=== PATIENT | male | born 1970 | race African-American/Black ===

== ENCOUNTER 2017-06-14 11:33 | Emergency (ER) | payer BC ==
[2017-06-14 12:03] VITALS: BP 163/118
--- NOTE | 2017-06-14 12:32 | UC ---
Respiratory Complaint HPI - HPI Summary HPI Summary: 3 DAYS OF COUGH, CONGESTION AND HOARSENESS. HAS SOME INTERMITTENT NAUSEA. ST INITIALLY HAS NOW RESOLVED. FEELS SOB AND WHEEZY. TEMP ABOUT 100 A COUPLE OF DAYS AGO. - History of Current Complaint Chief Complaint: UCGeneralIllness Stated Complaint: RESP ISSUE Time Seen by Provider: 06/14/17 12:13 Hx Obtained From: Patient, Family/Cage Operator - Onset/Duration: Gradual Onset, Lasting Days, Still Present Timing: Constant Severity Initially: Moderate Severity Currently: Moderate Pain Intensity: 0 Pain Scale Used: 0-10 Numeric Character: Cough: Nonproductive Aggravating Factors: Nothing Alleviating Factors: Nothing Associated Signs And Symptoms: Positive: Dyspnea, Fever, Wheezing, URI, Nasal Congestion, Hoarseness. Negative: Chills - Allergies/Home Medications Allergies/Adverse Reactions: Allergies Allergy/AdvReac Type Severity Reaction Status Date / Time ceftriaxone [From Rocephin] Allergy Severe Airway Verified 06/14/17 11:58 Obstruction Home Medications: Home Medications Acetaminophen [Tylenol Extra Strength] 2 tab PO BID 06/14/17 [History Confirmed 06/14/17] PMH/Surg Hx/FS Hx/Imm Hx Cardiovascular History: Hypertension - Surgical History Surgical History: Yes Surgery Procedure, Year, and Place: 2006 LAPAROSCOPIC CHOLECYSTECTOMY, [place]. 07/18/2013 BLASTING OF (27 stones)KIDNEY STONE RIGHT SIDE, [facility] [place] - Family History Known Family History: Positive: Hypertension - Social History Alcohol Use: Occasionally Substance Use Type: None Smoking Status (MU): Never Smoked Tobacco - Immunization History Most Recent Tetanus Shot: unknown Review of Systems Constitutional: Fever, Fatigue ENT: Sore Throat, Nasal Discharge Respiratory: Shortness Of Breath, Cough Cardiovascular: Negative Gastrointestinal: Vomiting, Nausea Musculoskeletal: Myalgia All Other Systems Reviewed And Are Negative: Yes Physical Exam Triage Information Reviewed: Yes Appearance: Well-Appearing, No Pain Distress, Well-Nourished Vital Signs: Initial Vital Signs Temp 99.3 F 06/14/17 11:58 Pulse 95 06/14/17 11:58 Resp 21 06/14/17 11:58 BP 163/118 06/14/17 11:58 Pulse Ox 98 06/14/17 11:58 Vital Signs Reviewed: Yes Eyes: Positive: Conjunctiva Clear ENT: Positive: Hearing grossly normal, Pharynx normal, TMs normal Neck: Positive: Supple, Nontender, No Lymphadenopathy Respiratory Exam: Normal Cardiovascular Exam: Normal Abdomen Description: Positive: Soft Musculoskeletal: Positive: No Edema Neurological: Positive: Alert Psychological: Positive: Normal Response To Family, Age Appropriate Behavior Skin: Negative: rashes UC Diagnostic Evaluation - Laboratory O2 Sat by Pulse Oximetry: 98 - Radiology Xray Interpretation: No Acute Changes - CXR Radiology Interpretation Completed By: Radiologist Respiratory Course/Dx - Course Course Of Treatment: LOW SUSPICION FOR CARDIAC ETIOLOGY AT PRESENT. GIVEN PT CONCERN OFFERED TRANSFER TO ER FOR CARDIAC W/U. PT DECLINES. WILL F/U OUTPT WITH PCP OR CARDIOLOGY. ADVISED TO GO TO ER WITHOUT FAIL IF SX WORSEN OR CHANGE. - Differential Dx/Diagnosis Provider Diagnoses: ACUTE URI Discharge - Discharge Plan Condition: Stable Disposition: HOME Prescriptions: Albuterol HFA INHALER* [Ventolin HFA Inhaler*] 2 puff INH Q4H PRN #1 mdi PRN Reason: Shortness Of Breath Codeine Phosphate/Guaifenesin [Codeine-Guaifen 10-100 mg/5 ml] 5 - 10 ml PO Q6H PRN #150 ml MDD 40ML PRN Reason: Cough predniSONE TAB* [Deltasone TAB*] 40 mg PO DAILY #10 tab Patient Education Materials: Upper Respiratory Infection (ED) Referrals: Gerardo Simpson MD [Medical Doctor] - If Needed Bernardo Hand MD [Primary Care Provider] - If Needed Additional Instructions: CHEST XRAY TODAY UNREMARKABLE. YOUR SYMPTOMS ARE LIKELY VIRALLY MEDIATED AND SHOULD RESOLVE ON THEIR OWN WITH TIME. REST, HYDRATE, OTC MEDS NEEDED. WILL TREAT WITH PREDNISONE AND INHALER TO HELP WITH AIRWAY INFLAMMATION AND COUGH MEDICINE. SEEK FOLLOW-UP IF YOU ARE NOT IMPROVING OVER THE NEXT 1-2 WEEKS. LOW SUSPICION FOR CARDIAC ETIOLOGY AT PRESENT. FOLLOW-UP WITH YOUR PCP OR CARDIOLOGY IF YOU DESIRE A CARDIAC EVALUATION. GO TO ER WITHOUT FAIL IF YOU DEVELOP WORSENING SHORTNESS OF BREATH, CHEST PAIN, NAUSEA, SWEATS, DIZZINESS OR ANY OTHER CONCERNING SYMPTOMS.
--- NOTE | 2017-06-14 12:56 | RAD ---
INDICATION: Cough. COMPARISON: Comparison is made with a prior chest x-ray study from August 06, 2015. TECHNIQUE: Dual-energy PA and lateral views of the chest were obtained. FINDINGS: The heart is within normal limits in size. Mediastinal and hilar contours appear within normal limits. The lungs are underinflated. There is minimal atelectasis at the left lung base. The lungs are otherwise clear. No pleural effusion is seen. IMPRESSION: NO EVIDENCE FOR ACUTE FINDING.
== END 2017-06-14 13:24 | disposition home or self-care (01) ==
LOC: UCEAST 11:33
DX: J06.9 Acute upper respiratory infection, unspecified (principal); R11.0 Nausea; I10 Essential (primary) hypertension; Z90.49 Acquired absence of other specified parts of digestive tract; Z87.442 Personal history of urinary calculi; Z88.1 Allergy status to other antibiotic agents
CPT/HCPCS: 71046; 99212; G0463

== ENCOUNTER 2018-01-20 21:02 | Emergency (ER) | payer BC ==
[2018-01-20] MEDS ORDERED: Labetalol IV* 5 MG/ML 20 ML VIAL IV PUSH ONE ×2 (22:10→23:14)
--- NOTE | 2018-01-20 22:15 | ED ---
Hypertension - HPI Summary HPI Summary: Pt is a 47 y/o male who presents to the ED c/o HTN. He states he was started on Valsartan again 4 days ago, 80 mg QD. Pt was on Valsartan years ago but stopped because he was doing well. He checks his BP twice a day. Pt initially went to his PCP 4 days ago because he was feeling lightheaded. He denies any nausea, visual changes, headache, or tinnitus. As per , he has been under extra stress lately. BP is 192/131 while in room. He takes daily ASA. - History of Current Complaint Chief Complaint: EDHypertension Stated Complaint: HIGH BP Time Seen by Provider: 01/20/18 22:00 Hx Obtained From: Patient, Family/Trial Justice - Onset/Duration: Still Present Timing: Constant Alleviating Factor(s): Nothing Associated Signs & Symptoms: Anxiety/Stress, Other: - Lightheadedness Related Hx: Diagnosed As: - HTN - Allergies/Home Medications Allergies/Adverse Reactions: Allergies Allergy/AdvReac Type Severity Reaction Status Date / Time ceftriaxone [From Rocephin] Allergy Severe Airway Verified 06/14/17 11:58 Obstruction Home Medications: Home Medications Valsartan 80 mg PO DAILY 01/20/18 [History Confirmed 01/20/18] PMH/Surg Hx/FS Hx/Imm Hx Cardiovascular History: Reports: Hx Hypertension - HX OF - NO MEDS PRESENTLY History: Reports: Hx Kidney Stones - Hx BI-LATERAL STONES,USUALLY PASS Sensory History: Denies: Hx Contacts or Glasses, Hx Hearing Aid Opthamlomology History: Denies: Hx Contacts or Glasses - Surgical History Surgery Procedure, Year, and Place: 2006 LAPAROSCOPIC CHOLECYSTECTOMY, [place]. 07/18/2013 BLASTING OF (27 stones)KIDNEY STONE RIGHT SIDE, [facility] Hx Anesthesia Reactions: No Infectious Disease History: No Infectious Disease History: Denies: Hx Clostridium Difficile, Hx Hepatitis, Hx Human Immunodeficiency Virus (HIV), Hx of Known/Suspected MRSA, Hx Shingles, Hx Tuberculosis, Hx Known/ Suspected VRE, Hx Known/Suspected VRSA, History Other Infectious Disease, Traveled Outside the [place] in Last 30 Days - Family History Known Family History: Positive: Hypertension - Social History Alcohol Use: Occasionally Hx Substance Use: No Substance Use Type: Reports: None Hx Tobacco Use: No Smoking Status (MU): Never Smoked Tobacco Review of Systems ENT: Other - NEGATIVE: visual changes, tinnitus Negative: Nausea Neurological: Other - Lightheadedness Negative: Headache All Other Systems Reviewed And Are Negative: Yes Physical Exam - Summary Physical Exam Summary: VITAL SIGNS: Reviewed. GENERAL: Patient is a well-developed and nourished MALE who is lying comfortable in the stretcher. Patient is not in any acute respiratory distress. HEAD AND FACE: No signs of trauma. No ecchymosis, hematomas or skull depressions. No sinus tenderness. EYES: PERRLA, EOMI x 2, No injected conjunctiva, no nystagmus. EARS: Hearing grossly intact. Ear canals and tympanic membranes are within normal limits. MOUTH: Oropharynx within normal limits. NECK: Supple, trachea is midline, no adenopathy, no JVD, no carotid bruit, no c- spine tenderness, neck with full ROM. CHEST: Symmetric, no tenderness at palpation LUNGS: Clear to auscultation bilaterally. No wheezing or crackles. CVS: Regular rate and rhythm, S1 and S2 present, no murmurs or gallops appreciated. ABDOMEN: Soft, non-tender. No signs of distention. No rebound no guarding, and no masses palpated. Bowel sounds are normal. EXTREMITIES: FROM in all major joints, no edema, no cyanosis or clubbing. NEURO: Alert and oriented x 3. No acute neurological deficits. Speech is normal and follows commands. SKIN: Dry and warm Triage Information Reviewed: Yes Vital Signs On Initial Exam: Initial Vitals Temp Pulse Resp BP Pulse Ox 97.9 F 93 20 188/116 98 01/20/18 21:06 01/20/18 21:06 01/20/18 21:06 01/20/18 21:06 01/20/18 21:06 Vital Signs Reviewed: Yes Diagnostics - Vital Signs Vital Signs Temp Pulse Resp BP Pulse Ox 01/20/18 21:06 97.9 F 93 20 188/116 98 - Laboratory Result Diagrams: 01/20/18 22:30 01/20/18 22:30 Lab Statement: Any lab studies that have been ordered have been reviewed, and results considered in the medical decision making process. Re-Evaluation - Re-Evaluation First Eval Re-Evaluation Time: 23:58 Change: Improved Comment: Feeling better, BP lower however still elevated. Pt is asymptomatic. Hypertension Course/Dx - Course Course Of Treatment: Pt is a 47 y/o male who presents to the ED c/o HTN. He states he was started on Valsartan again 4 days ago, 80 mg QD. Pt was on Valsartan years ago but stopped because he was doing well. He checks his BP twice a day. Pt initially went to his PCP 4 days ago because he was feeling lightheaded. He denies any nausea, visual changes, headache, or tinnitus. As per , he has been under extra stress lately. BP is 192/131 while in room. He takes daily ASA. A physical exam was normal. Final dx is hypertension. Pt is advised to take his BP medication BID instead of QD. He is discharged and is to F/U with his PCP on 01/23/18. - Diagnoses Provider Diagnoses: Hypertension Discharge - Sign-Out/Discharge Documenting (check all that apply): Patient Departure - Discharge Plan Condition: Stable Disposition: HOME Patient Education Materials: Hypertension (ED) Referrals: [facility] [place] [facility] [Outside] - 3 Days Additional Instructions: RETURN TO THE EMERGENCY DEPARTMENT FOR CHANGING OR WORSENING SYMPTOMS. FOLLOW UP WITH PCP IN 1-2 DAYS. - Billing Disposition and Condition Condition: STABLE Disposition: Home - Attestation Statements Document Initiated by Scribe: Yes Documenting Scribe: María Rausch Provider For Whom Luis is Documenting (Include Credential): Tino Verma MD Scribe Attestation: María Polk scribed for Tino Verma MD on 01/21/18 at 0436. Scribe Documentation Reviewed: Yes Provider Attestation: The documentation as recorded by the María hdez accurately reflects the service I personally performed and the decisions made by me, Tino Verma MD
[2018-01-20 22:53] LABS: EGFR Non-African American 72.5 (>60)
[2018-01-20 23:04] LABS: ABS Basophils 0.1 10^3/ul (0-0.2); ABS Eosinophils 0.4 10^3/ul (0-0.6); ABS Lymphocytes 2.4 10^3/ul (1.0-4.8); ABS Monocytes 0.9 10^3/ul (0-0.8); ABS Neutrophils 3.1 10^3/ul (1.5-7.7); ABS Nucleated RBC 0 10^3/ul; Eosinophil % 5.4 % (0-6); Hematocrit 51 % (42-52); Hemoglobin 17.9 g/dl (14.0-18.0); Lymphocyte % 35.1 % (25-47); Mean Corpuscular HGB Conc 35 g/dl (31-36); Mean Corpuscular Hemoglobin 31 pg (27-31); Mean Corpuscular Volume 88 fL (80-94); Mean Platelet Volume 7.2 um3 (7.4-10.4); Nucleated Red Blood Cells % 0.2; Platelet Count 299 10^3/ul (150-450); Red Blood Count 5.81 10^6/ul (4.00-5.40); Red Cell Distribution Width 13 % (10.5-15); White Blood Count 6.7 10^3/ul (3.5-10.8)
[2018-01-21] MEDS ORDERED: Valsartan TAB* 80 MG PO ONE (00:01)
[2018-01-21 00:39] VITALS: BP 169/110
== END 2018-01-21 00:38 | disposition home or self-care (01) ==
LOC: ED 21:02
DX: I10 Essential (primary) hypertension (principal); R42 Dizziness and giddiness
CPT/HCPCS: 36415; 80053; 85025; 96374; 96375; 99283; A9270-GY